=== PATIENT | female | born 1960 | race Caucasian/White ===

== ENCOUNTER 2023-07-12 14:45 | Emergency (ER) | payer OTHER, SELFPAY ==
--- NOTE | ~2023-07-12 | XR_ITS ---
XR elbow RT min 3V 07/12/2023 15:48 Indication: Status post fall. Right elbow pain. Procedure: 4 views of the right elbow Comparison: No prior studies for comparison. Findings: There is irregular poorly circumscribed sclerosis of the distal aspect of the humerus. Ther e is an old healed radial head fracture. No significant joint effusion. There are degenerative change s of the elbow. Impression: 1: Ill-defined irregular sclerosis distal aspect of the humerus, suspicious for osteonecrosis. If the re is continued concern for acute fracture, consider correlation with CT. Reviewed, dictated and finalized at location B. Impression: 1: Ill-defined irregular sclerosis distal aspect of the humerus, suspicious for osteonecrosis. If there is continued concern for acute fracture, consider jorge elation with CT.
--- NOTE | ~2023-07-12 | XR_ITS ---
XR knee LT min 4V 07/12/2023 15:47 Indication: Status post fall. Left knee pain. Procedure: 5 views left knee Comparison: No prior studies for comparison. Findings: There is geographic peripheral sclerosis of the distal aspect of the femur, compatible with osteonecrosis. No acute fracture or traumatic malalignment. No significant joint effusion. Impression: 1: [place] geographic peripheral sclerosis of the distal aspect of the femur, compatible with oste onecrosis per Reviewed, dictated and finalized at location B. Impression: 1: [place] geographic peripheral sclerosis of the distal aspect of the femur , compatible with osteonecrosis per
[2023-07-12 14:59] VITALS: BP 138/73; PULSE 68; RESP 16; TEMP 37; O2SAT 98
--- NOTE | 2023-07-12 15:19 | ED.LOWEXIN ---
HPI - Extremity Injury (Lower) General Chief Complaint: Extremity Injury, Lower Stated Complaint: WC Right elbow/left knee Time Seen by Provider: 07/12/23 15:19 Source: patient Mode of arrival: ambulatory Limitations: no limitations History of Present Illness HPI Narrative: 62 y/o female presented for c/o pain to the right elbow and left knee after injury today. States she tripped while at work today, landing on the knee and elbows. 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 Currently rates pain 5/10. Pain worse to the right arm/elbow when twisting at the elbow. Denies open wounds, bruising, swelling or deformity. Has not taken anything for pain. She has applied ice packs to the sites. Related Data Home Medications Medication Instructions Recorded Confirmed No Home Medications 07/12/23 07/12/23 Allergies Allergy/AdvReac Type Severity Reaction Status Date / Time No Known Allergies Allergy Verified 07/12/23 15:01 Review of Systems Review of Systems: CONSTITUTIONAL: Denies body aches, fever, chills EYES: Denies visual changes ENT: Denies rhinorrhea, congestion CARDIOVASCULAR: Denies chest pain, palpitations, or edema. RESPIRATORY: Denies cough or dyspnea. SKIN: Denies wounds. MUSCULOSKELETAL: Reports right elbow, left knee pain; Denies back pain, neck pain, myalgia. NEUROLOGIC: Denies headache, numbness, tingling, or weakness. All systems reviewed & are unremarkable except as noted in HPI and below PMFSH Comments At time of signature, I have reviewed and agree with nursing past medical, surgical, social and family history unless otherwise noted. Please see nursing chart for further information. There is no relevant family history pertinent to the presenting complaint Exam Narrative: GENERAL: Well-appearing CHEST: Speaks in full sentences. No respiratory distress. HEART: Regular rate and rhythm. Normal and equal peripheral pulses. EXTREMITIES: Right elbow tender with palpation throughout; no swelling or deformity. Elbow with limited range of motion with full extension and rotation, endorses pain with these movements. RUE has normal strength and sensation, No open wounds, or obvious deformity; alignment normal, pulse palpable and equal bilaterally, skin warm, dry, pink. Capillary refill less than 3 seconds. Patient is able to bear weight and ambulate with pain to the keft knee. No bruising, erythema or warmth. The knee is without obvious asymmetry or deformity when compared to the other knee. Patient is able to tolerate full flexion, extension, internal and external rotation and weight bearing. Mild tenderness to palpation of the patella, no effusion or ballottement. No tenderness over the infrapatellar tendon, proximal fibular head, or quadriceps. Distal motor and neurovascular status intact. SKIN: Warm, dry NEURO: Alert and oriented x3. PSYCH: Normal mood and affect Course Course Emergency Course: Patient is aware of diagnosis, understands and agrees to treatment plan. Anticipatory guidance given. Patient agrees to follow-up as directed and is aware of reasons to seek care at the emergency department. Portions of this record may have been created with voice recognition software Level of Care: Express Care Visit Vital Signs Vital signs: Vital Signs Temperature 98.6 F 07/12/23 14:59 Pulse Rate 68 07/12/23 14:59 Respiratory Rate 16 07/12/23 14:59 Blood Pressure 138/73 07/12/23 14:59 Pulse Oximetry 98 07/12/23 14:59 Oxygen Delivery Room Air 07/12/23 14:59 Temperature 98.6 F 07/12/23 14:59 Pulse Rate 68 07/12/23 14:59 Respiratory Rate 16 07/12/23 14:59 Blood Pressure 138/73 07/12/23 14:59 Pulse Oximetry 98 07/12/23 14:59 Oxygen Delivery Room Air 07/12/23 14:59 Reviewed MDM - Extremity Injury (Lower) MDM Narrative Medical decision making narrative: AYANA applied to right
== END 2023-07-12 16:32 | disposition home or self-care (01) ==
PROVIDERS: Emergency Provider Nurse Practitioner Family
DX: M25.521 Pain in right elbow (principal); S80.02XA Contusion of left knee, initial encounter; W03.XXXA Other fall on same level due to collision with another person, initial encounter; Y99.0 Civilian activity done for income or pay; J44.9 Chronic obstructive pulmonary disease, unspecified
CPT/HCPCS: 73080; 73564; 99214; G0463

== ENCOUNTER 2024-10-04 17:10 | Emergency (ER) | payer SELFPAY ==
--- OUTSIDE RECORDS SUMMARY | 2024-10-04 17:12 | XMS_ITS | Clinical Summary ---
Author Organization [facility] Address [address] [place] [address] Phone Care Team Providers Care Reimbursement Consultant Name Role Phone Garett Wilcox APRN, ROLDAN Primary Care Provider Cash Tinoco DO Unavailable [phone] Allergies No known active allergies Medications VENTOLIN HFA 108 (90 BASE) MCG/ACT Aerosol Solution take 2 Puffs by inhalation every 4 hours as needed. 12 6 Active buPROPion (WELLBUTRIN) 150 MG XL tablet Take 150 mg by mouth 2 times daily. 3 6 Active tiotropium (SPIRIVA) 18 MCG Capsule take 1 Puff by inhalation daily. 90 Cap 3 6 Active aspirin 325 MG Tablet Take 325 mg by mouth daily. Active Calcium Carbonate (CALCIUM 600 PO) Take 1 Tab by mouth daily. Active baclofen (LIORESAL) 10 MG TabletIndicatio ns:Muscle Spasticity Take 10 mg by mouth 4 times daily. Active gabapentin (NEURONTIN) 100 MG CapsuleIndicati ons:Neuropathic Pain Take 100 mg by mouth 3 times daily. Active HYDROcodone-nancy taminophen (NORCO) 5-325 MG Tablet Take 1-2 Tabs by mouth every 6 hours as needed for Severe pain (7-10). 15 Tab 8 Active Fluticasone-Pierre meterol (AIRDUO RESPICLICK 232/14) 232-14 MCG/ACT AEROSOL POWDER, BREATH ACTIVATED take 1 Puff by inhalation every 12 hours. 1 Each 5 8 Active naproxen (NAPROSYN) 500 MG Tablet Take 1 Tab by mouth 2 times daily as needed for Mild or more severe pain. 20 Tab 9 Active HYDROcodone-nancy taminophen (NORCO) 5-325 MG Tablet Take 1 Tab by mouth every 8 hours as needed for Moderate or more severe pain. 15 Tab 9 Active traMADol (ULTRAM) 50 MG Tablet Take 1 Tab by mouth every 6 hours as needed for Moderate or more severe pain. 20 Tab 9 Active INCRUSE ELLIPTA 62.5 MCG/INH AEROSOL POWDER, BREATH ACTIVATED USE ONE PUFF BY MOUTH EVERY DAY 1 Each 3 9 Active cimetidine (TAGAMET) 200 MG Tablet Take 1 Tab by mouth 2 times daily. 60 Tab 3 0 Active Active Problems Problem Noted Date Diagnosed Date Centrilobular emphysema 10/15/2015 Asthma without status asthmaticus 10/15/2015 Cough 09/17/2015 Tobacco use disorder 09/17/2015 Immunizations Immunization Administration Dates Next Due TDAP Vaccine 08/17/2017 Family History Medical History Relation Name Comments Diabetes Brother Colon Polyps Father 10 polyps remov ed Diabetes Father Heart Attack Father Hypertension Father Stroke Father Cancer Maternal Aunt Tongue Colon Polyps Mother 13 polyps remov ed Diabetes Mother Colon Polyps Other daughter 3 polyps remove d Colon Cancer Paternal Uncle 1 Cancer Paternal Uncle 2 stomach Colon Polyps Sister 5 polyps remove d Diabetes Sister Relation Name Status Comments Brother Father Maternal Aunt Mother Other daughter Alive Paternal Uncle 1 Paternal Uncle 2 Sister Alive Social History Tobacco Use Types Packs/Day Years Used Date Smoking Tobacco: Former Cigarettes 0.8 20 0 10/19/1995 - 10/19/2015 Smokeless Tobacco: Never Tobacco Cessation:Counseling Given: No Alcohol Use Standard Drinks/Week Comments No 0 (1 standard drink = 0.6 oz pure alcohol) 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 Quit 11/02 Comments No Sex and Gender Information Value Date Recorded Sex Assigned at Not on file Legal Sex Female 7:49 AM CDT Gender Identity Not on file Sexual Orientation Not on file Last Filed Vital Signs Vital Sign Reading Time Taken Comments Blood Pressure 131/79 12/12/2018 8:40 PM CDT Pulse 81 12/12/2018 8:40 PM CDT Temperature 37 C (98.6 F) 12/12/2018 5:53 PM CDT Respiratory Rate 13 12/12/2018 8:40 PM CDT Oxygen Saturation 99% 12/12/2018 8:40 PM CDT Inhaled Oxygen Concentration - - Weight 63.5 kg (140 lb) 12/12/2018 3:52 PM CDT Height 161.3 cm (5' 3.5) 12/12/2018 3:52 PM CDT Body Mass Index 24.41 12/12/2018 3:52 PM CDT Plan of Treatment Health Maintenance Due Date Last Done Comments Hepatitis C Virus (HCV) Screening 1961 Pneumococcal Immunization (50+ years) (1 of 2 - PCV) 1980 Pap Smear 1982 Cervical Cancer Screening (CCS) 09/05/1991 HPV/Cotest 09/05/1991 Cologuard 2006 Immunochemical Fecal Occult Blood 2006 Zoster Immunization (1 of 2) 09/05/2011 Respiratory Syncytial Virus (RSV) Immunization (Adult) (1 - Risk 60-74 years 1-dose series) 2021 Mammogram 01/26/2022 01/26/2021, 07/2019, 02/14/2018, Additional history exists SARS-COV-2 Immunization ( season) 2023 05/30/2020, 05/02/2020 Influenza Immunization (#1) 2024 12/27/2016 Colonoscopy 11/09/2025 11/10/2015 Colorectal Cancer Screening 11/09/2025 DTaP/Tdap/Td Immunization Discontinued 08/17/2017, 12/2016 Hepatitis B Immunization Aged Out No longer eligible based on patient's age to complete this topic Human Papillomavirus (HPV) Immunization Aged Out No longer eligible based on patient's age to complete this topic Meningococcal Immunization (ACWY) Aged Out No longer eligible based on patient's age to complete this topic Rotavirus Immunization Aged Out No lo nger eligible based on patient's age to complete this topic Procedures Procedure Name Priority Date/Time Associated Diagnosis Comments [facility] SCREENING BILATERAL DIGITAL W CAD W KERI Routine 02/14/2018 10:16 AM LASER CUTTER Encounter for screening mammogram for malignant neoplasm of breast from Last 3 Months or Most Recently Relevant to Health Maintenance Results * [facility] SCREENING BILATERAL DIGITAL W CAD W KERI (02/14/2018 10:16 AM LASER CUTTER) Anatomical Region Laterality Modality breast Bilateral Mammography 02/14/2018 9:56 AM LASER CUTTER Narrative 02/14/2018 4:59 PM LASER CUTTER - [facility] SCREENING BILATERAL DIGITAL W CAD W KERI BILATERAL DIGITAL SCREENING MAMMOGRAM 3D/2D WITH CAD WITH MEDIOLATERAL OBLIQUE CRANIOCAUDAL: 02/14/2018 The study was acquired using digital technology and interpreted from soft copy. Current study was also evaluated with ICAD version 7.2. CLINICAL: Routine screening. Patient has no complaints. No personal history of cancer. No family history of breast cancer. COMPARISONS: Comparison is made to exam dated: 09/26/2015 [facility]. BREAST TISSUE:There are scattered fibroglandular densities in both breasts. FINDINGS: No significant masses, calcifications, or other findings are seen in either breast. There has been no significant interval change. IMPRESSION: BI-RAD 1 NEGATIVE There is no mammographic evidence of malignancy. A 1 year screening mammogram is recommended. The patient has been or will be contacted. The patient will be entered into a reminder system with a target due date of 1 year for her next screening exam. Electronically signed by: Phillip hickey/dee:02/14/2018 12:53:27 Injection Molding Supervisor: Smitha Whalen(Fabricio), [facility] letter sent: Normal Exam Reading location: [facility] BI-RADS: 1 Negative Procedure Note Phillip Mcneil MD - 02/14/2018 - [facility] SCREENING BILATERAL DIGITAL W CAD W KERI BILATERAL DIGITAL SCREENING MAMMOGRAM 3D/2D WITH CAD WITH MEDIOLATERAL OBLIQUE CRANIOCAUDAL: 02/14/2018 The study was acquired using digital technology and interpreted from soft copy. Current study was also evaluated with ICAD version 7.2. CLINICAL: Routine screening. Patient has no complaints. No personal history of cancer. No family history of breast cancer. COMPARISONS: Comparison is made to exam dated: 09/26/2015 [facility]. BREAST TISSUE:There are scattered fibroglandular densities in both breasts. FINDINGS: No significant masses, calcifications, or other findings are seen in either breast. There has been no significant interval change. IMPRESSION: BI-RAD 1 NEGATIVE There is no mammographic evidence of malignancy. A 1 year screening mammogram is recommended. The patient has been or will be contacted. The patient will be entered into a reminder system with a target due date of 1 year for her next screening exam. Electronically signed by: Phillip hickey/dee:02/14/2018 12:53:27 Injection Molding Supervisor: Smitha Whalen(R), [facility] letter sent: Normal Exam Reading location: [facility] BI-RADS: 1 Negative us Garett Wilcox TALENT ACQUISITION LEAD, DRUG SAFETY SPECIALIST IMG MAMMO ORDERABLES F inal Result from Last 3 Months or Most Recently Relevant to Health Maintenance Insurance MEDICAID [employer] Advance Directives * Full Code (Latest Code Status on File) Date Activated Date Inactivated Comments 06/10/2017 6:25 PM 06/11/2017 12:37 PM CPR-Full Tr eatment: FULL ARREST: Attempt Resuscitation/CPR wit intubation and mechanical ventilation. PRE-ARREST: Use entire range of life support measures to stabilize the patient. Care Teams Reimbursement Consultant Relationship Specialty Start Date End Date Garett Wilcox, TALENT ACQUISITION LEAD, DRUG SAFETY SPECIALIST [address] [place] [address] PCP - General Certified Nurse Practitioner 09/04/15 Cash Tinoco DO [address] [place] [address] Gastroenterology 11/18/15
[2024-10-04 17:14] VITALS: BP 105/93; PULSE 87; RESP 22; TEMP 36.6; O2SAT 94
[2024-10-04 17:19] VITALS: BP 189/95
[2024-10-04] MEDS: IPRATROPIUM 0.5 MG/ALBUTEROL SULFATE 2.5 MG AMPUL.NEB 3 ML INHALATION ×2 (17:29→17:51)
--- NOTE | 2024-10-04 17:41 | ED_ITS ---
HPI - URI/Sore Throat General Chief Complaint: Upper Respiratory Infection Stated Complaint: throat/cough/congestion/breathing Time Seen by Provider: 10/04/24 17:41 Source: patient and RN notes reviewed Mode of arrival: ambulatory Limitations: no limitations History of Present Illness HPI Narrative: 64-year-old female presents concern for cough and shortness of breath. Reports 5 day history of cold symptoms. She had an asthma attack this morning around 10:00 a.m., she used her albuterol inhaler. Reports symptoms have worsened. Patient has history of COPD. MD elicited complaint: cough Related Data Home Medications ?Medication ?Instructions ?Recorded ?Confirmed ?Last Taken ?Type Symbicort 10/04/24 Unknown History albuterol 10/04/24 Unknown History aspirin 81 mg capsule 81 mg PO DAILY 10/04/24 Unknown History Allergies Allergy/AdvReac Type Severity Reaction Status Date / Time No Known Allergies Allergy Verified 10/04/24 17:23 Review of Systems Review of Systems: CONSTITUTIONAL: Denies malaise, chills, sweats, or fever. EYES: Denies visual changes, redness, or discharge. ENT: Reports rhinorrhea, congestion, and sore throat. CARDIOVASCULAR: Denies chest pain, palpitations, or edema. RESPIRATORY: Reports cough, dyspnea. MUSCULOSKELETAL: Denies myalgia. NEUROLOGIC: Denies headache. All systems reviewed & are unremarkable except as noted in HPI and below PMFSH Comments At time of signature, agree with nursing past medical, surgical, social and family history. There is no relevant family history pertinent to the presenting complaint Exam Narrative: GENERAL: Nontoxic-appearing, well-nourished, and in no acute distress. HEAD: Normocephalic EYES: PERRLA, conjunctivae clear ENT: Nares clear. Mucous membranes moist. TM pearly cordova with dull light reflex bilaterally; no tragal tenderness. Oropharynx not erythematous without lesions. Tonsils not enlarged and without exudate, no drooling, no hoarseness, no trismus, uvula midline. NECK: Supple. No lymphadenopathy CHEST: Tight, scattered wheeze, breath sounds diminished. No rhonchi, rales, or stridor. Conversational dyspnea, tripoding HEART: Regular rate and rhythm. No murmur heard. SKIN: Warm, dry, no rash. NEURO: Alert and oriented x3. PSYCH: Normal mood and affect Course Course Emergency Course: Patient is aware of diagnosis, understands and agrees to treatment plan. Anticipatory guidance given. Patient agrees to follow-up as directed and is aware of reasons to seek care at the emergency department. Portions of this record may have been created with voice recognition software Level of Care: Express Care Visit Reevaluation(s) Reevaluation #1: Patient reports some improvement in breathing after DuoNeb, she still is having conversational dyspnea, lung sounds are slightly improved but still tight and wheezing. Solu-Medrol given Date: 10/04/24 Time: 17:43 Reevaluation #2: Patient had Second DuoNeb, reports symptom improvement. Patient no longer has conversational dyspnea is no longer tripoding. Lung sounds improved still scattered wheeze noted Date: 10/04/24 Time: 18:17 Vital Signs Vital signs: Vital Signs Temperature 97.9 F 10/04/24 17:14 Pulse Rate 87 10/04/24 17:14 Respiratory Rate 22 H 10/04/24 17:14 Blood Pressure 105/93 H 10/04/24 17:14 Pulse Oximetry 94 10/04/24 17:14 Oxygen Delivery Room Air 10/04/24 17:14 Temperature 97.9 F 10/04/24 17:14 Pulse Rate 87 10/04/24 17:14 Respiratory Rate 22 H 10/04/24 17:14 Blood Pressure 189/95 H 10/04/24 17:19 Pulse Oximetry 94 10/04/24 17:14 Oxygen Delivery Room Air 10/04/24 17:14 Reviewed. MDM - URI/Sore Throat MDM Narrative Medical decision making narrative: Differential diagnosis considered: Gama virus, strep pharyngitis, allergic rhinitis, upper respiratory tract infection, sinusitis, rhinosinusitis, nasopharyngitis. viral pharyngitis, otitis media, otitis externa, pneumonia, bronchitis, viral cough syndrome, viral syndrome, and influenza. Exam findings show no acute concerns or changes; patient is non-toxic appearing and is in no distress. Patient is appropriate for outpatient treatment and follow-up. Lab Data Attestation: I reviewed the patient's lab results. Critical Care Time Critical Care Time Critical Care Time: No Discharge Plan Discharge Clinical Impression: Acute exacerbation of chronic obstructive pulmonary disease Patient Disposition: Home Condition: Stable Instructions: COPD (Chronic Obstructive Pulmonary Disease) (ED) Additional Instructions: Your COVID and flu tests are negative 1) Please follow-up with your primary care doctor in the next 1-2 days. 2) If y ou have any worsening of symptoms or any other urgent concerns please go to the ER. 3) Please take medications as prescribed and continue taking your home medications as usual. 4) Please read and follow information included in discharge instructions. Patient Language: Hong Konger Prescriptions: New azithromycin [Zithromax Z-Anthony] 250 mg tablet See Rx Instructions .ROUTE .COMPLEX Qty: 6 0RF Rx Instructions: take 500 mg today (day 1), then 250 mg for 4 days (days 2-5) methylprednisolone [Medrol (Anthony)] 4 mg tablets,dose pack See Rx Instructions .ROUTE .COMPLEX Qty: 21 0RF Rx Instructions: orally per package directions albuterol sulfate 90 mcg/actuation HFA aerosol inhaler 2 puff INHALATION QID PRN (Reason: shortness of breath or wheezing) Qty: 8.5 0RF No Action Symbicort albuterol aspirin 81 mg capsule 81 mg PO DAILY Follow-up/Referrals: PHYSICIAN,PRODUCT MARKETING ENGINEER [Primary Care Provider] - Time of Disposition: 18:15
[2024-10-04 18:07] LABS: EDCOVIDSCREEN Negative (Negative); EDINFLUASCREEN Negative (Negative); EDINFLUBSCREEN Negative (Negative)
[2024-10-04 18:07] LABS: EDINFLUASCREEN Negative (Negative); EDINFLUBSCREEN Negative (Negative)
== END 2024-10-04 18:24 | disposition home or self-care (01) ==
PROVIDERS: Emergency Provider Nurse Practitioner
DX: J44.1 Chronic obstructive pulmonary disease with (acute) exacerbation (principal); Z20.822 Contact with and (suspected) exposure to COVID-19
CPT/HCPCS: 87426; 87804; 94640; 96372; 99213; G0463; J2919